=== PATIENT | male | born 1975 | race Caucasian/White ===

== ENCOUNTER 2020-01-09 17:12 | Emergency (ER) | payer OTHER ==
--- NOTE | 2020-01-09 19:04 | ER Document Report ---
ED Medical Screen (RME) - General Chief Complaint: Shortness Of Breath Stated Complaint: SHORTNESS OF BREATH Time Seen by Provider: 01/09/20 18:58 Primary Care Provider: OLGA CASTANEDA MD [Primary Care Provider] - Follow up as needed Mode of Arrival: Wheelchair Information source: Patient Notes: 44-year-old male presented to ED for shortness of breath x3 weeks. He states his body is aching all over his legs are cramping up, dates he does cough a little bit but not all the time. He states he does have gallstones for the last 4 years. States he has had a change in his taste but not his smell. She was tested 2 weeks ago and was negative for Covid but he states he works for the [employer] and they did a mandatory testing on everybody. 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 He states his shortness of breath that he has had for the last 3 weeks has gotten worse over the last for 5 days. He states the cramping has been for the last for 5 days. We will recheck for flu Covid and get CBC and chemistry to check electrolytes. We will also get a chest x-ray. States he does feel like his heart is racing intermittently for the last 3 to 4 days. I have greeted and performed a rapid initial assessment of this patient. A comprehensive ED assessment and evaluation of the patient, analysis of test results and completion of medical decision making process will be conducted by an additional ED providers. TRAVEL OUTSIDE OF THE [place] IN LAST 30 DAYS: No - Related Data Allergies/Adverse Reactions: No Known Allergies Allergy (Unverified 06/03/11 09:58) Past Medical History - Past Medical History Cardiac Medical History: Denies: Hx Coronary Artery Disease, Hx Heart Attack, Hx Hypertension Pulmonary Medical History: Denies: Hx Asthma, Hx Bronchitis, Hx COPD, Hx Pneumonia Neurological Medical History: Denies: Hx Cerebrovascular Accident, Hx Seizures Musculoskeltal Medical History: Denies Hx Arthritis Past Surgical History: Denies: Hx Pacemaker - Immunizations Hx Diphtheria, Pertussis, Tetanus Vaccination: - unsure Physical Exam - Vital signs Vitals: Temp Pulse Resp BP Pulse Ox 98.4 F 83 18 142/118 H 100 01/09/20 17:30 01/09/20 17:30 01/09/20 17:30 01/09/20 17:30 01/09/20 17:30 Course - Vital Signs Vital signs: Temp Pulse Resp BP Pulse Ox 98.4 F 83 18 142/118 H 100 01/09/20 17:30 01/09/20 17:30 01/09/20 17:30 01/09/20 17:30 01/09/20 17:30 Doctor's Discharge - Discharge Referrals: OLGA CASTANEDA MD [Primary Care Provider] - Follow up as needed
--- NOTE | 2020-01-09 20:48 | RADIOLOGY REPORT (SQ) ---
EXAM DESCRIPTION: Site: CHEST SINGLE VIEW RP: XR CHEST 1 VIEW CLINICAL HISTORY: 44 years Male; palpitation; COMPARISON: None. FINDINGS: Lungs: Lungs are clear, with no focal infiltrate, pneumothorax, or pleural effusion. Slight elevation of right hemidiaphragm. Mediastinum: Mediastinum is within normal limits for this positioning. Bones: Bony structures are unremarkable. IMPRESSION: 1. No acute pulmonary findings.
[2020-01-09 22:36] LABS: ABSOLUTE BASOPHILS # (AUTO) 0.1 10^3/uL (0.0-0.2); ABSOLUTE EOSINOPHILS # (AUTO) 0.4 10^3/uL (0.0-0.6); ABSOLUTE LYMPHOCYTES (AUTO) 1.7 10^3/uL (0.5-4.7); ABSOLUTE MONOCYTES (AUTO) 0.5 10^3/uL (0.1-1.4); ABSOLUTE NEUT (AUTO) 4.2 10^3/uL (1.7-8.2); BASOPHILS % (AUTO) 1.3 % (0-2); EOSINOPHILS % (AUTO) 5.3 % (0-6); HEMATOCRIT 29.7 % (37.9-51.0); HEMOGLOBIN 9.1 g/dL (13.5-17.0); LYMPHOCYTES % (AUTO) 25.2 % (13-45); MEAN CORPUSCULAR HGB CONC 30.8 g/dL (32.0-36.0); MONOCYTES % (AUTO) 7.8 % (3-13); PLATELET COUNT 623 10^3/uL (150-450); RED BLOOD COUNT 4.81 10^6/uL (4.35-5.55); RED CELL DISTRIBUTION WIDTH 16.7 % (11.5-14.0); SEGMENTED NEUTROPHILS % (AUTO) 60.4 % (42-78); TOTAL CELLS COUNTED % (AUTO) 100 %; WHITE BLOOD COUNT 6.9 10^3/uL (4.0-10.5)
[2020-01-09 22:46] LABS: ALBUMIN 4.5 g/dL (3.5-5.0); ALKALINE PHOSPHATASE 77 U/L (38-126); ANION GAP 9 (5-19); ASPARTATE AMINO TRANSFERASE 32 U/L (17-59); BILIRUBIN,TOTAL 0.5 mg/dL (0.2-1.3); BLOOD UREA NITROGEN 15 mg/dL (7-20); CALCIUM 9.8 mg/dL (8.4-10.2); CARBON DIOXIDE 28 mmol/L (22-30); CHLORIDE 99 mmol/L (98-107); CREATINE KINASE 207 U/L (55-170); GLUCOSE 101 mg/dL (75-110); PHOSPHORUS 4.6 mg/dL (2.5-4.5); POTASSIUM 4.6 mmol/L (3.6-5.0); TOTAL PROTEIN 7.5 g/dL (6.3-8.2)
[2020-01-09 22:59] LABS: MEAN CORPUSCULAR VOLUME 62 fl (80-97)
[2020-01-09 23:00] LABS: ANISOCYTOSIS 1+; HYPOCHROMASIA 2+; OVALOCYTES 1+; POLYCHROMASIA SLIGHT
[2020-01-09 23:01] LABS: PLATELET COMMENT INCREASED
--- NOTE | 2020-01-10 00:53 | ER Document Report ---
ED Cardiac - General Chief Complaint: Palpitations Stated Complaint: SHORTNESS OF BREATH Time Seen by Provider: 01/09/20 18:58 Primary Care Provider: OLGA CASTANEDA MD [COMMUNITY BASED STAFF] - Follow up as needed Mode of Arrival: Wheelchair Information source: Patient Notes: ED Medical Screen (Hubert nix) - General Chief Complaint: Shortness Of Breath Stated Complaint: SHORTNESS OF BREATH Time Seen by Provider: 01/09/20 18:58 Primary Care Provider: OLGA CASTANEDA MD [Primary Care Provider] - Follow up as needed Mode of Arrival: Wheelchair Information source: Patient Notes: 44-year-old male presented to ED for shortness of breath x3 weeks. He states his body is aching all over his legs are cramping up, dates he does cough a little bit but not all the time. He states he does have gallstones for the last 4 years. States he has had a change in his taste but not his smell. She was tested 2 weeks ago and was negative for Covid but he states he works for the [employer] and they did a mandatory testing on everybody. 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 He states his shortness of breath that he has had for the last 3 weeks has gotten worse over the last for 5 days. He states the cramping has been for the last for 5 days. We will recheck for flu Covid and get CBC and chemistry to check electrolytes. We will also get a chest x-ray. States he does feel like his heart is racing intermittently for the last 3 to 4 days. MY NOTES 44-year-old male arrives with 2-month history of progressively increased shortness of breath and dyspnea on exertion. Patient reports his father has a severe heart condition and is status post CABG and stents. Patient reports he used to take Lipitor for high cholesterol and lisinopril for high blood pressure but no longer does this for least 2 years. Patient has no sick people at home. He has 2 great Leonardo dogs and they are not sick. Patient reports every 6 months after working out he has a blood sugar drop causing severe weakness. He does use Preworkout protocol powder whose ingredients include nitric oxide citrulline caffeine beta alanine B vitamins arginine ornithine dear antler velvet to increase insulin growth factor I beet root juice creatine. Patient works at [employer] and usually wears a Kevlar vest throughout the day. For the last 1 week he has been severely short of breath. When he tries to walk to his bathroom 8 feet away he gets short of breath. Patient reports he takes aspirin periodically and periodically also has black tarry stools. He reports she has had ulcers in the past and takes Prilosec for these. TRAVEL OUTSIDE OF THE [place] IN LAST 30 DAYS: No - Related Data Allergies/Adverse Reactions: No Known Allergies Allergy (Unverified 06/03/11 09:58) Past Medical History - General Information source: Patient - Social History Smoking Status: Unknown if Ever Smoked Family History: None - Past Medical History Cardiac Medical History: Denies: Hx Coronary Artery Disease, Hx Heart Attack, Hx Hypertension Pulmonary Medical History: Denies: Hx Asthma, Hx Bronchitis, Hx COPD, Hx Pneumonia Neurological Medical History: Denies: Hx Cerebrovascular Accident, Hx Seizures Musculoskeletal Medical History: Denies Hx Arthritis Past Surgical History: Denies: Hx Pacemaker - Immunizations Hx Diphtheria, Pertussis, Tetanus Vaccination: - unsure Physical Exam - Vital signs Vitals: Temp Pulse Resp BP Pulse Ox 98.4 F 83 18 142/118 H 100 01/09/20 17:30 01/09/20 17:30 01/09/20 17:30 01/09/20 17:30 01/09/20 17:30 Interpretation: Hypertensive - General General appearance: Appears well, Alert - HEENT Head: Normocephalic, Atraumatic Eyes: Normal Pupils: PERRL - Respiratory Respiratory status: No respiratory distress Chest status: Tender - Diffusely Breath sounds: Normal Chest palpation: Normal - Cardiovascular Rhythm: Regular Heart sounds: Normal auscultation Murmur: No - Abdominal Inspection: Normal Distension: No distension Bowel sounds: Normal Tenderness: Nontender Organomegaly: No organomegaly - Rectal Prostate: Other - Deferred - Genitourinary Scrotum: Other - Deferred - Back Back: Normal, Nontender - Extremities General upper extremity: Normal inspection, Nontender, Normal color, Normal ROM, Normal temperature General lower extremity: Normal inspection, Nontender, Normal color, Normal ROM, Normal temperature, Normal weight bearing. No: Arnoldo's sign - Neurological Neuro grossly intact: Yes Cognition: Normal Orientation: AAOx4 Broseley Coma Scale Eye Opening: Spontaneous Broseley Coma Scale Verbal: Oriented Landon Coma Scale Motor: Obeys Commands Landon Coma Scale Total: 15 Speech: Normal Motor strength normal: LUE, RUE, LLE, RLE Sensory: Normal - Psychological Associated symptoms: Normal affect, Normal mood - Skin Skin Temperature: Warm Skin Moisture: Dry Skin Color: Normal Course - Vital Signs Vital signs: Temp Pulse Resp BP Pulse Ox 98.4 F 83 18 171/91 H 100 01/09/20 17:30 01/09/20 17:30 01/09/20 17:30 01/09/20 19:05 01/09/20 17:30 - Laboratory Result Diagrams: 01/09/20 22:15 01/09/20 22:15 Laboratory results interpreted by me: 01/09/20 01/09/20 01/09/20 22:15 22:15 22:15 Hgb 9.1 L Hct 29.7 L MCV 62 L MCH 19.0 L MCHC 30.8 L RDW 16.7 H Plt Count 623 H Sodium 136.2 L Phosphorus 4.6 H Creatine Kinase 207 H 221 H - Diagnostic Test Radiology reviewed: Reports reviewed - EKG Interpretation by Me EKG shows normal: Sinus rhythm Rate: Normal Rhythm: NSR - With heart rate 68 bpm with borderline T abnormalities diffuse leads. There are no ST elevations ST depressions and this EKG was read by myself and I agree with monitor diagnosis as well. Critical Care Note - Critical Care Note Comments: I discussed this case with Dr. Alma Delia Link and he will see the patient as outpatient in his clinic Discharge - Discharge Clinical Impression: Elevated CPK, GI bleed due to NSAIDs Hypertension Qualifiers: Hypertension type: unspecified Qualified Code(s): I10 - Essential (primary) hypertension Anemia Qualifiers: Anemia type: unspecified type Qualified Code(s): D64.9 - Anemia, unspecified Condition: Stable Disposition: HOME, SELF-CARE Additional Instructions: You may want to discontinue with the preworkout powder because it has certain chemicals that may exacerbate your hypertension. Blood pressure is quite high upon checking in triage. Return to ER as needed take medicines as directed encourage fluids. Obtain your blood pressures at least twice a day and record these on a calendar for your personal doctor to evaluate.. Stop taking aspirin and continue with [id number] Pepcid Prilosec and Rx for Carafate . follow- up with Dr. Turcios paperhanger assistant and take Pepcid daily. Follow with Dr Merlos heart doctor. Prescriptions: Sucralfate [Carafate 1 gm Tablet] 1 gm PO ACHS #40 tablet Lisinopril/Hydrochlorothiazide [Lisinopril-Hctz 20-25 mg Tab] 1 each PO DAILY #30 tablet Magnesium Chloride [Slow-Mag] 71.5 mg PO DAILY 30 Days #30 tablet.dr Forms: Return to Work Referrals: OLGA CASTANEDA MD [COMMUNITY BASED STAFF] - Follow up as needed ALMA DELIA LINK MD [ACTIVE PROVISIONAL STAFF] - Follow up as needed MICHELE TURCIOS MD [ACTIVE STAFF] - Follow up as needed
[2020-01-10 01:22] LABS: INTERNATIONAL RATION (INR) 1.02; PROTHROMBIN TIME 13.6 SEC (11.4-15.4)
[2020-01-10 01:23] LABS: PARTIAL THROMBOPLASTIN TIME 30.8 SEC (23.5-35.8)
[2020-01-10 02:51] VITALS: BP 146/76
[2020-01-10 14:25] LABS: PATH REVIEW PATHOLOGIST REVIEWED
--- NOTE | 2020-01-10 15:17 | EKG REPORT ---
SEVERITY:- BORDERLINE ECG - SINUS RHYTHM BORDERLINE T ABNORMALITIES, DIFFUSE LEADS : Confirmed by: Faye Da Silva MD 10-Jan-2020 15:16:59
== END 2020-01-10 02:56 | disposition home or self-care (01) ==
LOC: ER 17:12
DX: K92.2 Gastrointestinal hemorrhage, unspecified (principal); T39.395A Adverse effect of other nonsteroidal anti-inflammatory drugs [NSAID], initial encounter; D64.9 Anemia, unspecified; I10 Essential (primary) hypertension; R06.02 Shortness of breath; R25.2 Cramp and spasm; R05 Cough; R09.89 Other specified symptoms and signs involving the circulatory and respiratory systems; R79.89 Other specified abnormal findings of blood chemistry; Z79.899 Other long term (current) drug therapy; Z82.49 Family history of ischemic heart disease and other diseases of the circulatory system
CPT/HCPCS: 36415; 71045; 80053; 82550; 83735; 83880; 84100; 84443; 84484; 85025; 85610; 85730; 93005; 93010; 99285